=== PATIENT | female | born 1960 | race African-American/Black ===

== ENCOUNTER 2017-01-31 18:22 | Emergency (ER) | payer OTHER ==
[2017-01-31 18:26] VITALS: BP 122/75; PULSE 66; TEMP 97.6; BMI 17.2
--- NOTE | 2017-01-31 18:38 | PDOC ---
History of Present Illness - General Chief Complaint: Back Pain Stated Complaint: BACK PAIN Time Seen by Provider: 01/31/17 18:36 History Source: Patient Exam Limitations: No Limitations - History of Present Illness Initial Comments: CHIEF COMPLAINT: 56 y/o afebrile female with no significant PMH c/o left sided back pain for the past 3 days. HISTORY OF PRESENT ILLNESS: The patient states she was getting over a cold and coughed really hard 3 days ago. After the cough she felt a twinge in her left back. She states the back hurts with certain movements despite tylenol use, taking apple cider vinegar and soaking with epsom salt but still has pain. She googled her symptoms and is concerned with a UTI. She denies f/c, n/v/d, CP, SOB, abd pain, hematuria, dysuria. Vital signs on arrival are within normal limits. REVIEW OF SYSTEMS: GENERAL/CONSTITUTIONAL: No fever/chills. No weakness. No weight change. HEAD, EYES, EARS, NOSE AND THROAT: No change in vision. No ear pain or discharge. No sore throat. CARDIOVASCULAR: No chest pain or shortness of breath. RESPIRATORY: No cough, wheezing, or hemoptysis. GASTROINTESTINAL: No abd pain, nausea, vomiting, diarrhea. GENITOURINARY: No dysuria, frequency, or change in urination. MUSCULOSKELETAL: No joint or muscle swelling or pain. No neck pain. +left back pain SKIN: No rash or easy bruising. NEUROLOGIC: No headache, vertigo, loss of consciousness, or loss of sensation. PHYSICAL EXAM: GENERAL: The patient is awake, alert, and fully oriented, in no acute distress. She is very well appearing, ambulatory in NAD or obvious discomfort. HEAD: Normal with no signs of trauma. ENT: Pupils equal, round and reactive to light, extraocular movements intact, sclera anicteric, conjunctiva clear. Neck supple. LUNGS: Clear to auscultation bilaterally. Normal excursion. No respiratory distress or use of accessory muscles. CV: RRR, S1/S2, no MRG. Cap refill < 2 sec. ABDOMEN: Soft, non-distended, non-tender even to deep palpation, no hepatomegaly or splenomegaly, no masses. No flank pain. BACK: No CVA TTP b/l. No midline thoracic or lumbar spine TTP or step offs. Some reproducible pain with palpation of left lumbar paravertebral muscles. Pain reproduced with flexion of back, as well as lateral lumbar spine movements. EXTREMITIES: Normal range of motion, no edema. NEUROLOGICAL: Normal speech, normal gait. CN II-XII grossly intact. PSYCH: Normal mood, normal affect. SKIN: Warm, dry, normal turgor, no rashes or lesions noted. Past History - Past Medical History Allergies/Adverse Reactions: Allergies Allergy/AdvReac Type Severity Reaction Status Date / Time No Known Drug Allergies Allergy Verified 01/31/17 18:53 LOBSTER Allergy Swelling Uncoded 01/31/17 18:26 Home Medications: Ambulatory Orders NK [No Known Home Medication] 01/31/17 Other medical history: DENIES - Surgical History Abdominal Surgery: Yes (TUBAL LIGATION) - Psycho/Social/Smoking Cessation Hx Anxiety: No Suicidal Ideation: No Smoking Status: No Smoking History: Current every day smoker Number of Cigarettes Smoked Daily: 2 Information on smoking cessation initiated: Yes 'Breaking Loose' booklet given: 01/31/17 Hx Alcohol Use: Yes (SOCIALLY) Drug/Substance Use Hx: No Substance Use Type: None *Physical Exam - Vital Signs Last Vital Signs Temp Pulse Resp BP Pulse Ox 97.6 F 66 17 122/75 99 01/31/17 18:24 01/31/17 18:24 01/31/17 18:24 01/31/17 18:24 01/31/17 18:24 Medical Decision Making - Medical Decision Making A/P: 56 y/o female with musculoskeletal left sided back pain. Plan is as follows: 1. PO motrin 2. UA/culture The patient does not want to wait for the results of her UA. Will discharge her to home with dx of low back pain. Will call her with UA results. Pt instructed to return to the ER with any worsening or concerning symptoms The patient verbalizes understanding of all instructions, has no further questions and is awaiting discharge. *DC/Admit/Observation/Transfer Diagnosis at time of Disposition: Low back pain Qualifiers: Chronicity: acute Back pain laterality: left Sciatica presence: without sciatica Qualified Code(s): M54.5 - Low back pain - Discharge Dispostion Disposition: HOME Condition at time of disposition: Good - Referrals Referrals: Titus Morse MD [Primary Care Provider] - - Patient Instructions Printed Discharge Instructions: DI for Low Back Pain Additional Instructions: Discharge Instructions: -Take 400mg of over the counter Motrin or Ibuprofen every 6 hours with food for pain -Use heating pad to affected area of back -Stretch your back multiple times per day -Return to the ER with any worsening or concerning symptoms.
[2017-01-31] MEDS ORDERED: IBUPROFEN 400 MG TABLET (FP) PO ONE ×2 (18:52→18:54)
[2017-01-31 19:19] LABS: URINE APPEARANCE SLCLOUDY; URINE BILIRUBIN NEGATIVE (NEGATIVE); URINE BLOOD NEGATIVE (NEGATIVE); URINE COLOR LTYELLOW; URINE GLUCOSE (UA) NEGATIVE (NEGATIVE); URINE KETONE NEGATIVE (NEGATIVE); URINE NITRITE NEGATIVE (NEGATIVE); URINE PROTEIN NEGATIVE (NEGATIVE); URINE UROBILINOGEN NEGATIVE E.U./dl (0.2-1.0)
[2017-01-31 19:59] LABS: URINE LEUK ESTERASE 2+ (NEGATIVE)
[2017-01-31 21:52] LABS: URINE BACTERIA RARE /hpf (NONE SEEN); URINE MUCUS RARE; URINE RBC 3 /hpf (0-3); URINE WBC 10 /hpf (3-5)
--- NOTE | 2017-02-06 14:46 | PDOC ---
Patient Follow-up (Call Back) - Post ED Follow - Up Condition at time of discharge: Good Disposition at time of original discharge: HOME Reason for Call Back: Complaint/Condition F/U (pt called to get her urine culture result (left message on vm) I returned pt's call left message on her number [phone]. the culture is negative)
== END 2017-01-31 20:28 | disposition home or self-care (01) ==
LOC: JERFT 18:22
DX: M54.5 Low back pain (principal); Z72.0 Tobacco use
CPT/HCPCS: 81003; 81015; 87086; 99281-25

== ENCOUNTER 2017-02-26 21:30 | Emergency (ER) | payer OTHER ==
[2017-02-26 21:43] VITALS: BP 111/84; PULSE 80; TEMP 98; BMI 18.1
--- NOTE | 2017-02-26 23:49 | PDOC ---
History of Present Illness - General Chief Complaint: Urinary Problem Stated Complaint: PAIN DURING URINATION Time Seen by Provider: 02/26/17 22:36 History Source: Patient Exam Limitations: No Limitations - History of Present Illness Travel History: No Initial Comments: 02/26/17 23:30 56yo Female patient with no significant past medical history presents to ED c/o urinary burning, discharge, odor, urgency beginning last week. Patient thought is was experiencing a yeast infection and was treating symptoms by eating Probiotic Yogurt. She states symptoms continue to get worse. Patient denies any other complaints at this time. Timing/Duration: reports: getting worse. denies: constant, changing over time, intermittent, resolved prior to arrival, gone now, other Quality: reports: moderate. denies: mild, severe, aching, burning, cramping, dullness, fullness, sharpness, stabbing, throbbing, other Abdominal Pain Onset Location: reports: suprapubic. denies: RUQ, LUQ, RLQ, LLQ , epigastric, periumbilical, generalized abdomen, flank, unknown, other Pain Radiation: reports: no radiation Activities at Onset: reports: no specific activity Treatment Prior to Arrive: worse with: analgesics, antacids, cold pack, heat, laxative, enema, other Aggravating Factors: worse with: None, Defecation, Eating, Emotional upset, Exertion, [place], Movement, Voiding, Change in position Alleviating Factors: worse with: None, Belching, Shallow Breathing, Defecation, Eating, Holding Breath, Passing Gas, Change in Position, Rest, Voiding, Vomiting Past History - Travel Traveled outside of the country in the last 30 days: No Close contact w/someone who was outside of country & ill: No - Past Medical History Allergies/Adverse Reactions: Allergies Allergy/AdvReac Type Severity Reaction Status Date / Time No Known Drug Allergies Allergy Verified 02/26/17 21:38 LOBSTER Allergy Swelling Uncoded 02/26/17 21:38 Home Medications: Ambulatory Orders Cephalexin Monohydrate [Keflex -] 500 mg PO BID #20 capsule 02/27/17 Other medical history: Denies - Surgical History Abdominal Surgery: Yes (TUBAL LIGATION) - Immunization History Immunization Up to Date: Yes - Psycho/Social/Smoking Cessation Hx Anxiety: No Suicidal Ideation: No Smoking Status: No Smoking History: Former smoker Have you smoked in the past 12 months: No Number of Cigarettes Smoked Daily: 2 Information on smoking cessation initiated: No 'Breaking Loose' booklet given: 01/31/17 Hx Alcohol Use: No Drug/Substance Use Hx: No Substance Use Type: None Abd/GI Specific PMHX - Complaint Specific PMHX Colitis: No Diverticulitis: No Gall Bladder Disease: No GERD: No Hepatitis: No Irritable Bowel Synd (IBS): No Pancreatitis: No GI Ulcer Disease: No Review of Systems - Review of Systems Able to Perform ROS?: Yes Is the patient limited Yi proficient: No Constitutional: No: Chills, Fever : Yes: Burning, Dysuria, Discharge, Frequency, Pain, Urgency. No: Flank Pain , Hematuria, Incontinence Musculoskeletal: No: Back Pain All Other Systems: Reviewed and Negative *Physical Exam - Vital Signs Last Vital Signs Temp Pulse Resp BP Pulse Ox 98.0 F 80 16 111/84 97 02/26/17 21:38 02/26/17 21:38 02/26/17 21:38 02/26/17 21:38 02/26/17 21:38 - Physical Exam General Appearance: Yes: Nourished, Appropriately Dressed. No: Apparent Distress, Mild Distress, Moderate Distress, Severe Distress Neck: positive: Trachea midline, Supple. negative: Decreased range of motion, Stridor, Lymphadenopathy (R), Lymphadenopathy (L) Respiratory/Chest: positive: Lungs Clear, Normal Breath Sounds. negative: Chest Tender, Respiratory Distress, Accessory Muscle Use, Labored Respiration, Rapid RR Cardiovascular: positive: Regular Rhythm, Regular Rate Gastrointestinal/Abdominal: positive: Normal Bowel Sounds, Soft. negative: Increased Bowel Sounds, Decreased BS, Protuberent, Distended, Guarding, Rebound , Tenderness Musculoskeletal: positive: Normal Inspection. negative: CVA Tenderness Extremity: positive: Normal Capillary Refill, Normal Inspection, Normal Range of Motion. negative: Pedal Edema, Swelling Integumentary: positive: Normal Color, Dry, Warm. negative: Cold, Hives, Rash, Swelling Neurologic: positive: refrigeration manager II-XII NML intact, Fully Oriented, Alert, Normal Mood/ Affect, Normal Response, Motor Strength 5/5 Medical Decision Making - Medical Decision Making 02/27/17 01:03 PATIENT DEFERS PELVIC EXAM AT THIS TIME. REPORTS UNPROTECTED SEX 2 MONTHS AGO. TREAT STD. UA NEG. ROCEPHIN AND RUPA IN ED. RX: KEFLEX F/U WITH ADMINISTRATIVE SUPPORT CLERK DISCUSSED. *DC/Admit/Observation/Transfer Diagnosis at time of Disposition: Urinary tract infection Qualifiers: Urinary tract infection type: urethritis Qualified Code(s): N34.2 - Other urethritis - Discharge Dispostion Disposition: HOME Condition at time of disposition: Stable Admit: No - Prescriptions Prescriptions: Cephalexin Monohydrate [Keflex -] 500 mg PO BID #20 capsule - Patient Instructions Printed Discharge Instructions: DI for Urinary Tract Infection (UTI) Additional Instructions: FOLLOW UP WITH ADMINISTRATIVE SUPPORT CLERK DISCUSSED. TAKE MEDICATIONS PRESCRIBED. RETURN IF SYMPTOMS WORSEN OR ANY CONCERNS FOR FURTHER EVALUATION. Print Language: V[place]
[2017-02-27 00:39] LABS: URINE APPEARANCE CLEAR; URINE BILIRUBIN NEGATIVE (NEGATIVE); URINE BLOOD NEGATIVE (NEGATIVE); URINE COLOR COLORLESS; URINE GLUCOSE (UA) NEGATIVE (NEGATIVE); URINE KETONE NEGATIVE (NEGATIVE); URINE NITRITE NEGATIVE (NEGATIVE); URINE PROTEIN NEGATIVE (NEGATIVE); URINE UROBILINOGEN NEGATIVE E.U./dl (0.2-1.0)
[2017-02-27 00:45] LABS: URINE LEUK ESTERASE TRACE (NEGATIVE)
[2017-02-27] MEDS ORDERED: AZITHROMYCIN 250 MG TABLET (FP) PO ONE (01:04)
[2017-02-27] MEDS ORDERED: LIDOCAINE HCL 1%, 10 MG/ML (50 mL VIAL) INF ONE (01:05)
[2017-02-27] MEDS ORDERED: cefTRIAXone SODIUM 1 GM VIAL ONE (01:09)
[2017-02-27] MEDS ORDERED: LIDOCAINE HCL/PF 1% SDV 5ML VIAL ONE (01:10)
[2017-02-27] MEDS ORDERED: AZITHROMYCIN 1 GM PACKET ONE (01:12)
[2017-02-27 01:18] LABS: URINE BACTERIA RARE /hpf (NONE SEEN); URINE RBC <1 /hpf (0-3); URINE WBC 1 /hpf (3-5)
== END 2017-02-27 01:31 | disposition home or self-care (01) ==
LOC: JER 21:30
DX: N34.2 Other urethritis (principal); Z77.21 Contact with and (suspected) exposure to potentially hazardous body fluids
CPT/HCPCS: 81003; 81015; 84703; 87086; 99282-25

== ENCOUNTER 2018-01-16 17:51 | Emergency (ER) | payer OTHER ==
[2018-01-16 18:03] VITALS: BP 102/65; PULSE 73; TEMP 98.2; BMI 19.3
[2018-01-16 18:43] LABS: URINE APPEARANCE SLCLOUDY; URINE BILIRUBIN NEGATIVE (<2.0 mg/dL); URINE COLOR LTYELLOW; URINE GLUCOSE (UA) NEGATIVE (NEGATIVE); URINE KETONE NEGATIVE (NEGATIVE); URINE NITRITE NEGATIVE (NEGATIVE); URINE PROTEIN NEGATIVE (NEGATIVE); URINE UROBILINOGEN NEGATIVE mg/dL (0.2-1.0)
--- NOTE | 2018-01-16 19:14 | PDOC ---
History of Present Illness - General Chief Complaint: Urinary Problem Stated Complaint: URINARY SYMPTOMS Time Seen by Provider: 01/16/18 18:18 History Source: Patient Exam Limitations: No Limitations - History of Present Illness Initial Comments: 01/16/18 20:07 Pt. is a 57 y/o F with no PMH who presents to the ED c/o dysuria, and hematuria. She states her symptoms started approximately one week ago and she also has clear/yellowish vaginal discharge. She states she tried monostat at home with little relief. Denies fevers, chills, back pain, abdominal pain, pelvic pain, nausea, vomiting. Pt. states she has protected sex with one partner and is not concerned for STD's at this time Past History - Travel Traveled outside of the country in the last 30 days: No Close contact w/someone who was outside of country & ill: No - Past Medical History Allergies/Adverse Reactions: Allergies Allergy/AdvReac Type Severity Reaction Status Date / Time No Known Drug Allergies Allergy Verified 01/16/18 18:00 LOBSTER Allergy Swelling Uncoded 01/16/18 18:00 Home Medications: Ambulatory Orders Cephalexin Monohydrate [Keflex -] 500 mg PO BID #14 capsule 01/16/18 Phenazopyridine HCl [Pyridium -] 100 mg PO TID #21 tablet 01/16/18 COPD: No Other medical history: DENIES. - Surgical History Abdominal Surgery: Yes (TUBAL LIGATION) - Immunization History Immunization Up to Date: Yes - Suicide/Smoking/Psychosocial Hx Smoking Status: No Smoking History: Former smoker Have you smoked in the past 12 months: No Number of Cigarettes Smoked Daily: 2 Information on smoking cessation initiated: No 'Breaking Loose' booklet given: 01/31/17 Hx Alcohol Use: No Drug/Substance Use Hx: No Substance Use Type: None Review of Systems - Review of Systems Able to Perform ROS?: Yes Comments:: 01/16/18 19:13 CONSTITUTIONAL: Absent: fever, chills, diaphoresis, generalized weakness, malaise, loss of appetite GASTROINTESTINAL: Absent: abdominal pain, abdominal distension, nausea, vomiting, diarrhea, constipation, melena, hematochezia GENITOURINARY: Present: dysuria, frequency, urgency, hematuria Absent: hesitancy, flank pain, genital pain, vaginal bleeding MUSCULOSKELETAL: Absent: myalgia, arthralgia, joint swelling SKIN: Absent: rash, itching, pallor NEUROLOGIC: Absent: headache, focal weakness or paresthesias, dizziness, unsteady gait, seizure, mental status changes, bladder or bowel incontinence Is the patient limited Algerian proficient: No *Physical Exam - Vital Signs Last Vital Signs Temp Pulse Resp BP Pulse Ox 98.2 F 73 19 102/65 100 01/16/18 18:00 01/16/18 18:00 01/16/18 18:00 01/16/18 18:00 01/16/18 18:00 - Physical Exam Comments: 01/16/18 19:13 GENERAL: Well developed, well nourished. Awake and alert. No acute distress. ABDOMINAL: Soft. Non-tender. Non-distended. No rebound or guarding. No organomegaly. Normoactive bowel sounds. MUSCULOSKELETAL Normal range of motion at all joints. No CVA tenderness. EXTREMITIES: No cyanosis. No clubbing. No edema. No calf tenderness. SKIN: Warm and dry. Normal capillary refill. No rashes. No jaundice. NEUROLOGICAL: Alert, awake, appropriate. Cranial nerves 2-12 intact. No deficits to light touch and temperature in face, upper extremities and lower extremities. No motor deficits in the in face, upper extremities and lower extremities. Normoreflexic in the upper and lower extremities. Normal speech. Toes are down- going bilaterally. Gait is normal without ataxia. Medical Decision Making - Medical Decision Making 01/16/18 20:15 Pt is a 57 y/o F who presents to the ED with UTI like symptoms. Pt. afebrile with no CVA tenderness or abdominal tenderness on exam. Urine shows 3+ Leukocytes with 87 WBC's. Will treat empirically for UTI at this time. Keflex started. Pt. given return precautions. Understands all dc instructions and all questions were answered. *DC/Admit/Observation/Transfer Diagnosis at time of Disposition: UTI (urinary tract infection) Qualifiers: Urinary tract infection type: acute cystitis Hematuria presence: with hematuria Qualified Code(s): N30.01 - Acute cystitis with hematuria - Discharge Dispostion Disposition: HOME Condition at time of disposition: Stable Decision to Admit order: No - Prescriptions Prescriptions: Cephalexin Monohydrate [Keflex -] 500 mg PO BID #14 capsule Phenazopyridine HCl [Pyridium -] 100 mg PO TID #21 tablet - Referrals Referrals: Titus Morse MD [Primary Care Provider] - - Patient Instructions Printed Discharge Instructions: DI for Urinary Tract Infection (UTI) Additional Instructions: You have a urinary tract infection. This caused by bacteria. Please drink plenty of fluids. Take your antibiotics as prescribed. Finish the entire dose even if you feel better. You may take Tylenol or Motrin as needed for pain Please follow up with your primary care doctor this week. Return to the emergency department if you have fevers, chills, nausea, vomiting , back pain, or have any changes in your symptoms. - Post Discharge Activity
[2018-01-16 19:35] LABS: URINE LEUK ESTERASE 3+ (NEGATIVE)
[2018-01-16 19:36] LABS: EPI CELLS RARE /HPF (FEW); URINE BACTERIA RARE /hpf (NONE SEEN); URINE MUCUS RARE
== END 2018-01-16 19:44 | disposition home or self-care (01) ==
LOC: JERFT 17:51
DX: N30.01 Acute cystitis with hematuria (principal)
CPT/HCPCS: 81003; 81015; 87086; 99281-25

== ENCOUNTER 2018-04-28 09:52 | Emergency (ER) | payer OTHER ==
[2018-04-28 10:03] VITALS: BP 109/79; PULSE 81; TEMP 98.3; BMI 19.3
[2018-04-28 10:50] LABS: URINE APPEARANCE CLEAR; URINE BILIRUBIN NEGATIVE (<2.0 mg/dL); URINE COLOR LTYELLOW; URINE GLUCOSE (UA) NEGATIVE (NEGATIVE); URINE KETONE NEGATIVE (NEGATIVE); URINE NITRITE NEGATIVE (NEGATIVE); URINE PROTEIN NEGATIVE (NEGATIVE); URINE UROBILINOGEN NEGATIVE mg/dL (0.2-1.0)
[2018-04-28 10:58] LABS: URINE LEUK ESTERASE 2+ (NEGATIVE)
[2018-04-28 11:01] LABS: EPI CELLS RARE /HPF (FEW); URINE MUCUS RARE
--- NOTE | 2018-04-28 11:29 | PDOC ---
History of Present Illness - General Chief Complaint: Pain Stated Complaint: ABD PAIN/vaginal sx Time Seen by Provider: 04/28/18 10:08 History Source: Patient Exam Limitations: No Limitations - History of Present Illness Travel History: No Initial Comments: 04/28/18 10:33 57-year-old female presents to ED with complaints of yellowish green discharge with fishy odor for the past week. Patient denies abdominal pain, fever, chills , urinary complaints back pain, or change in bowel pattern. Patient states went to her NAPPING MACHINE OPERATOR about 2 months ago and had full workup after having urinary tract infection in december including testing for HIV, STDs which was negative. Timing/Duration: reports: constant (discharge) Past History - Travel Traveled outside of the country in the last 30 days: No - Past Medical History Allergies/Adverse Reactions: Allergies Allergy/AdvReac Type Severity Reaction Status Date / Time No Known Drug Allergies Allergy Verified 04/28/18 10:00 LOBSTER Allergy Swelling Uncoded 04/28/18 10:00 Home Medications: Ambulatory Orders Multivitamin [Multiple Vitamins] 1 each PO DAILY 04/28/18 metroNIDAZOLE [Flagyl -] 500 mg PO BID #14 tablet 04/28/18 COPD: No DVT: No - Surgical History Abdominal Surgery: Yes (TUBAL LIGATION) - Reproductive History Is Patient Now?: (N/A) - Immunization History Immunization Up to Date: Yes - Suicide/Smoking/Psychosocial Hx Smoking Status: No Smoking History: Former smoker Have you smoked in the past 12 months: No Number of Cigarettes Smoked Daily: 2 Information on smoking cessation initiated: Yes 'Breaking Loose' booklet given: 04/28/18 Hx Alcohol Use: No Drug/Substance Use Hx: No Substance Use Type: None Patient Lives Alone: No Lives with/in: children Abd/GI Specific PMHX - Complaint Specific PMHX Colitis: No Diverticulitis: No Gall Bladder Disease: No GERD: No Hepatitis: No Irritable Bowel Synd (IBS): No Pancreatitis: No GI Ulcer Disease: No Review of Systems - Review of Systems Able to Perform ROS?: Yes Constitutional: No: Symptoms Reported ABD/GI: No: Symptoms Reported : Yes: Discharge. No: Dysuria, Frequency, Flank Pain, Hematuria Musculoskeletal: No: Symptoms Reported Integumentary: No: Symptoms Reported, Pruritus, Rash *Physical Exam - Vital Signs Last Vital Signs Temp Pulse Resp BP Pulse Ox 98.3 F 81 18 109/79 100 04/28/18 10:01 04/28/18 10:01 04/28/18 10:01 04/28/18 10:01 04/28/18 10:01 - Physical Exam General Appearance: Yes: Nourished, Appropriately Dressed. No: Apparent Distress Female Pelvic Exam: positive: cervical os closed, other (fishy smelling yellowish green discharge in vault and around os). negative: CMT, adnexal tenderness, vaginal bleeding Gastrointestinal/Abdominal: positive: Normal Bowel Sounds, Soft. negative: Distended, Tenderness ED Treatment Course - ADDITIONAL ORDERS Additional order review: Laboratory Results 04/28/18 10:40 Urine Color Ltyellow Urine Appearance Clear Urine pH 6.0 Ur Specific [place] 1.017 Urine Protein Negative Urine Glucose (UA) Negative Urine Ketones Negative Urine Blood 1+ H Urine Nitrite Negative Urine Bilirubin Negative Urine Urobilinogen Negative Ur Leukocyte Esterase 2+ H Urine WBC (Auto) 6 Urine RBC (Auto) 17 Ur Epithelial Cells Rare Urine Mucus Rare Medical Decision Making - Medical Decision Making 04/28/18 10:40 Patient with vaginal discharge for one week. Patient on exam appears to have Bacterial vaginosis. Patient stated [place] over the past 2 weeks and denies any sexual activity since November. Patient was ordered for urinalysis urine culture and genital culture. Patient will be discharged home with Flagyl 04/28/18 11:41 Laboratory Tests 04/28/18 10:40 Urine Blood 1+ H Urine Nitrite Negative Ur Leukocyte Esterase 2+ H Urine WBC (Auto) 6 Urine RBC (Auto) 17 *DC/Admit/Observation/Transfer Diagnosis at time of Disposition: Bacterial vaginosis - Discharge Dispostion Disposition: HOME Condition at time of disposition: Good - Prescriptions Prescriptions: metroNIDAZOLE [Flagyl -] 500 mg PO BID #14 tablet - Referrals Referrals: Titus Morse MD [Primary Care Provider] - - Patient Instructions Printed Discharge Instructions: DI for Bacterial Vaginosis Additional Instructions: Please take Flagyl as prescribed. Please follow-up with your NAPPING MACHINE OPERATOR as needed. You will receive phone call if the urine culture or genital culture shows an infection. - Post Discharge Activity
== END 2018-04-28 11:32 | disposition home or self-care (01) ==
LOC: JER 09:52
DX: N76.0 Acute vaginitis (principal); B96.89 Other specified bacterial agents as the cause of diseases classified elsewhere
CPT/HCPCS: 36415; 81003; 81015; 87070; 87086; 87205; 87491; 87591; 87661; 99283-25

== ENCOUNTER 2018-10-14 18:30 | Emergency (ER) | payer OTHER ==
--- NOTE | 2018-10-14 18:35 | PDOC ---
Rapid Medical Evaluation Chief Complaint: Pain Time Seen by Provider: 10/14/18 18:32 Medical Evaluation: Allergies Allergy/AdvReac Type Severity Reaction Status Date / Time No Known Drug Allergies Allergy Verified 04/28/18 10:00 LOBSTER Allergy Swelling Uncoded 04/28/18 10:00 10/14/18 18:32 I have performed a brief in person evaluation of this patient. CC: right UE pain HPI: Pt is a 58 YO female who does a lot of repetitive movement who states over the past day she has had pain in the right wrist, elbow and shoulder worse with movement. Denies injury/trauma. Denies SOB/denies CP PE: Skin: Clear Lungs: Clear Heart:RRR Abd: soft, nontender MS: Moves all extremities without difficulty. No deformity Neuro: Alert and oriented Psych: Appropriate affect Pt will proceed to [facility] for further evaluation. Discharge Disposition - Diagnosis Musculoskeletal pain - Referrals - Patient Instructions - Post Discharge Activity
[2018-10-14 18:39] VITALS: BP 143/94; PULSE 71; TEMP 98.5; BMI 18.6
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
== END 2018-10-14 19:14 | disposition home or self-care (01) ==
LOC: JER 18:30 → JERFT 18:30
DX: M54.12 Radiculopathy, cervical region (principal); F17.210 Nicotine dependence, cigarettes, uncomplicated
CPT/HCPCS: 99281-25